=== PATIENT | female | born 1960 | race Caucasian/White ===

== ENCOUNTER 2021-07-26 00:06 | Day surgery (SDC) | payer OTHER, SELFPAY ==
[2021-07-19 12:19] VITALS: BMI 30.6
--- NOTE | 2021-07-19 12:27 | PC.NURSE ---
Report to the Outpatient Waiting Room, entrance under the green pavilion located off [facility], at time 1130 on date 07/26/21. OR Time: 1330. - You will be asked a series of questions to screen for COVID 19 for your protection. - A mask is required within the hospital. - No visitors are allowed at this time. Preoperative COVID Testing Requirements: TO E-MAIL COPY OF CARD No COVID Test needed if: (proof is required; if not received patient will have Rapid Test prior to entry) - Patient has received COVID Vaccine at least 14 days prior to procedure date or - Patient has positive COVID test result within last 90 days of surgery date. COVID Test needed if above criteria is not met Patients may have clear liquids (water, carbonated beverages, clear teas, apple juice) until 3 hours prior to surgery with a maximum of 20 ounces. - No food from midnight until time of surgery Take the following medications with a SIP of water the morning of surgery: NONE Medications to discontinue per physician: N/A Date to take last dose: N/A Please no make-up, nail portuguese, hairspray, perfume, deodorant, or body powder the day of surgery. No jewelry (including any body piercings) or valuables the day of surgery, leave them at home. Please take a shower or bath the night before, or the morning of, surgery with an antibacterial soap. Wear comfortable, loose fitting clothing. - Jewelry must be removed prior to entering the operating room. Rings and piercings that are not removed may be cut off. - The hospital will not accept responsibility for valuables. - Please leave all valuables, including medications, at home the day of surgery. If you are going home after surgery, a licensed funeral driver must drive you home. - NO public transportation without another adult. - We recommend that an adult stay with you for 24 hours following discharge. - We also recommend that you do not drive, make important decision, drink alcoholic beverages, or take any drugs that were not prescribed by your health care provider for at least 24 hours after your discharge time. Follow any additional instructions given to you from your surgeon. Telephone instructions given to RENUKA ROWE and asked if any additional questions and then verbalized understanding. Patient advised to call surgeon office or pre surgery nurse liaison [phone] if any additional questions.
[2021-07-26] VITALS (8 sets, daily range): BP systolic 122–134; BP diastolic 67–76; PULSE 85–111; RESP 12–20; TEMP 37.1–37.6; O2SAT 95–100
[2021-07-26] MEDS: LACTATED RINGERS 1,000 ML 30 ML IV CONT ×3 (12:05→17:43)
--- NOTE | 2021-07-26 12:56 | P.PNAN_ITS ---
Anes - Initial Pre Proc Eval Procedure: Operation Date: 07/26/21 13:30 Proposed Procedures p Bilateral Breast Implant Exchange with Capsulectomy - Ge Grullon MD Date/Time: 07/26/21 12:56 Surgeon: Ge Grullon MD Pre Op Diagnosis: bilateral breast implant rupture Patient Data Age: 60 Gender: F Height: 1.65 m Weight: 82.9 kg Last Vital Signs Temp 37.1 C 07/26/21 11:44 Pulse 111 H 07/26/21 11:44 Resp 20 07/26/21 11:44 BP 134/76 07/26/21 11:44 Pulse Ox 100 07/26/21 11:44 Allergies Allergy/AdvReac Type Severity Reaction Status Date / Time No Known Allergies Allergy Unverified 07/26/21 11:38 Home Medications Medication Instructions Recorded Confirmed Type docusate sodium 100 mg capsule 100 mg PO DAILY #14 cap 07/09/21 07/19/21 Rx ondansetron HCl 4 mg tablet 4 mg PO Q8H #21 tablet 07/09/21 07/19/21 Rx carisoprodol 350 mg tablet 350 mg PO TID PRN #21 tablet 07/10/21 07/19/21 Rx hydrocodone 5 mg-acetaminophen 325 1 tablet PO Q6H PRN #30 tablet 07/10/21 07/19/21 Rx mg tablet Patient hx anesthesia problems: none Family hx anesthesia problems: none Results Review: All pre-operative results and documents have been reviewed as part of the pre-operative evaluation. [facility] Past Medical History Medical History (Updated 07/26/21 @ 12:56 by Shankar Erazo MD) Obesity Surgical History Surgical History (Updated 07/26/21 @ 12:56 by Shankar Erazo MD) H/O breast augmentation Hx of section Hx of rotator cuff surgery Social History Social History Smoking status: Former smoker Additional smoking assessment comments: NOT IN OVER 35 YEARS Alcohol intake: never Substance use: never Substance use type: does not use Living arrangements: with family Spiritual care concerns: No Anes - Eval Final PreProcedure Day of Procedure 07/26/21 12:56 Patient weight: obese Heart: regular rate and rhythm Lungs: clear to auscultation Airway: Mallampati scale class II Neurological: alert and oriented Last oral intake: >/= 8 hours ASA classification: II Emergent: no Anesthetic plan: proceed Anesthesia type and monitoring: general LMA and standard monitoring Results Review: All pre-operative results and documents have been reviewed as part of the pre-operative evaluation. Informed Consent: The patient's anesthetic plan and its attendant risks and benefits were discussed with the patient/family/POA. Questions were solicited and answers provided to the satisfaction of the patient/family/POA.
--- NOTE | 2021-07-26 13:02 | WPDHPUPDATE1 ---
History and Physical Update Update Date/Time: 07/26/21 13:02 History and Physical has been reviewed, including an updated exam of the patient. There are NO changes in the patient's condition. Risks, benefits, and alternatives have been discussed and questions answered. Patient agrees to proceed with procedure.
--- NOTE | 2021-07-26 13:30 | W.PM.PROC2 ---
Procedure Note - Detailed Date of Procedure 07/26/21 Pre-op Diagnosis bilateral breast implant rupture Post-op Diagnosis same Procedure Performed Bilateral breast implant exchange Surgeon Ge Grullon MD Findings Bilateral ruptured silicone smooth implants. No size markings identified on implants New implants: Ernesto fountain SoftTouch 445cc Right - REF# [id number]. SN [id number] Left - REF# [id number] SN [id number] Description of Procedure Preoperatively the risks, benefits, alternatives were discussed in extensive detail. I wanted her to be very realistic about the risks involved as well as expectations. 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 She understands this will still be present afterwards, we are not correcting this. She would like to switch to an IMF incision. She understands there is always the possibility that her implants are not ruptured we do have ultrasound which suggests that as well as her implants are greater than 30 years old. As such she would like proceed with exchange. She understands that we are not aware for sure of what size implant she has, we do have a significant variety available however there is no guarantee that she will be size. All questions were answered to her satisfaction today. Consent obtained. She would like proceed. She was marked in the preoperative holding area with her verification. She was taken to the operating room placed supine on the operating room table. Anesthesia provided by anesthesiology and prepped and draped in standard sterile fashion. Surgical time-out was taken. 1% lidocaine and 0.25% Marcaine with epinephrine was used to provide a field block. Fifteen blade used to make an IMF incision that continued dissection until the capsule was identified removed the entire bilateral capsules. Implants were ruptured and removed. Findings as above. Copiously irrigated with more than 6 L of saline containing solution on TUR tubing. I verified strict hemostasis. Changed gloves. I then irrigated with triple antibiotic Betadine solution. Implant was opened on the back table. Throughout the procedure we did have Tegaderm nipple Mejia in place. Using a Ibrahim funnel the implant was introduced into the pocket. I closed using 2-0 Vicryl followed by 3-0 Monocryl in a running subcuticular 4-0 Monocryl and tissue glue. Dressings were placed. She tolerated well. Estimated Blood Loss 75 Drains No Packing No Pathology none sent Complications No immediate complications Condition stable Disposition PACU
[2021-07-26] MEDS: ceFAZolin 2 GM/D5W 50 ML 2 GM/50 ML BAG IVPB (13:44)
[2021-07-26] MEDS: BUPIVACAINE HCL 0.25% PF 30 ML VIAL INFILTRATE (13:44)
[2021-07-26] MEDS: LIDO 1%/EPINEPHRINE 1:100,000 50 ML VIAL 30 ML INFILTRATE (13:44)
[2021-07-26] MEDS: TRANEXAMIC ACID 1,000MG/ISO100 1,000 MG/100 ML BAG 200 MG IVPB (13:56)
[2021-07-26] MEDS: ONDANSETRON INJ 4 MG/2 ML VIAL IV PUSH (17:15)
[2021-07-26] MEDS: diphenhydrAMINE HCl INJ 50 MG/ML VIAL 12.5 MG IV PUSH (17:40)
== END 2021-07-26 18:10 | disposition home or self-care (01) ==
PROVIDERS: Visit Provider Surgery Plastic and Reconstructive Surgery
PROC: (CPT 19342; principal; 2021-07-26 13:30)
DX: T85.41XA Breakdown (mechanical) of breast prosthesis and implant, initial encounter (principal); Y83.8 Other surgical procedures as the cause of abnormal reaction of the patient, or of later complication, without mention of misadventure at the time of the procedure; E66.9 Obesity, unspecified; Z68.30 Body mass index [BMI] 30.0-30.9, adult
CPT/HCPCS: 19371; 19325; J0690; J1100; J1170; J1200; J1580; J2250; J2405; J2704; J3010; J7120